=== PATIENT | female | born 1990 | race Caucasian/White ===

== ENCOUNTER 2021-11-11 22:21 | Emergency (ER) | payer OTHER ==
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
[2021-11-11] MEDS ORDERED: TETANUS,DIPHTHERIA TOXOID ADULT 0.5 ML INJ IM ONE (23:05)
[2021-11-11] MEDS ORDERED: MORPHINE 2 MG/1 ML INJ IV ONE (23:06)
[2021-11-12] MEDS ORDERED: KETOROLAC 30 MG/1 ML INJ IV ONE (00:36)
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
[2021-11-12 04:31] VITALS: BP 138/82
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
--- NOTE | 2021-11-12 08:10 | Electrocardiograph Report ---
[facility] Test Date: 2021-11-12 Test Time: 00:09:17 Pat Name: ROSSY CHÁVEZ Department: Room: Gender: F Collections Director: EPI : [id number] Requested By: TATIANNA RAMIREZ Order Number: [id number] Reading MD: Kevon Lopez Measurements Intervals [place] Rate: 101 P: 62 [place]: 143 QRS: -60 QRSD: 81 T: 54 QT: 335 QTc: 435 Interpretive Statements Sinus tachycardia Probable left atrial enlargement Left anterior fascicular block No previous ECG available for comparison Electronically Signed On 11-12-2021 8:09:53 EDT by Kevon Lopez
== END 2021-11-12 04:32 | disposition home or self-care (01) ==
LOC: ED 22:21
DX: S82.891A Other fracture of right lower leg, initial encounter for closed fracture (principal); S20.219A Contusion of unspecified front wall of thorax, initial encounter; F17.200 Nicotine dependence, unspecified, uncomplicated; V87.7XXA Person injured in collision between other specified motor vehicles (traffic), initial encounter; Y93.89 Activity, other specified; Y92.488 Other paved roadways as the place of occurrence of the external cause; Y99.8 Other external cause status
CPT/HCPCS: 71046; 73610; 90471; 90714; 93005; 96374; 96375; 99283; J1885; J2270